=== PATIENT | male | born 1995 | race African-American/Black ===

== ENCOUNTER 2017-09-18 11:50 | Emergency (ER) | payer SELFPAY ==
[~2017-09-18] VITALS: Ht 177.8 cm; Wt 66.0 kg
[2017-09-18 11:52] VITALS: BP 116/72
== END 2017-09-18 12:45 | disposition home or self-care (01) ==
LOC: ER 12:34
DX: J06.9 Acute upper respiratory infection, unspecified (principal); J45.909 Unspecified asthma, uncomplicated; F12.10 Cannabis abuse, uncomplicated
CPT/HCPCS: 99282